=== PATIENT | female | born 1980 | race Caucasian/White ===

== ENCOUNTER 2019-09-01 14:02 | Inpatient (IN) | payer BC ==
--- NOTE | 2019-09-01 14:21 | PDOC ---
Rapid Medical Evaluation Time Seen by Provider: 09/01/19 14:16 Medical Evaluation: Allergies Allergy/AdvReac Type Severity Reaction Status Date / Time Penicillins Allergy Verified 01/23/16 02:48 09/01/19 14:17 39 year old female pmhx Complaining of weakness and ETOH withdrawals sent by PCP for low K (2.7) and low B1 and folate PE: WNL No tremors, tongue fasciculation Plan Labs EKG Pt to precede to ED for further treatment and care
--- NOTE | 2019-09-01 15:30 | PDOC ---
History of Present Illness - General Chief Complaint: Revisit, Lab Variance Stated Complaint: SENT BY PCP Time Seen by Provider: 09/01/19 14:16 History Source: Patient Exam Limitations: No Limitations Past History - Travel History Traveled outside of the country in the last 30 days: No Close contact w/someone who was outside of country & ill: No - Medical History Allergies/Adverse Reactions: Allergies Allergy/AdvReac Type Severity Reaction Status Date / Time Penicillins Allergy Verified 09/01/19 14:17 Home Medications: Ambulatory Orders Chlordiazepoxide [Librium -] 5 mg PO TID 09/01/19 Ferrous Sulfate [Iron] 325 mg PO TID 09/01/19 Folic Acid 1 mg PO DAILY 09/01/19 Thiamine HCl [Vitamin B-1] 100 mg PO DAILY 09/01/19 Anemia: Yes (IN THE PAST) Asthma: No Cardiac Disorders: No CVA: No COPD: No Diabetes: No GI Disorders: Yes (HX PANCREATITIS) Disorders: Yes (RECENT UTI CURRENTLY IN TREATMENT) HTN: No Hypercholesterolemia: No Liver Disease: No Seizures: No Thyroid Disease: Yes (ELEVATED TSH 01/05/16) - Psycho-Social/Smoking History Smoking History: Never smoked Have you smoked in the past 12 months: No Information on smoking cessation initiated: No - Substance Abuse Hx (Audit-C & DAST Scrn) How often the patient has a drink containing alcohol: Never Score: In Men: 4 or > Positive; In Women: 3 or > Positive: 0 Screen Result (Pos requires Nsg. Audit-10AR): Negative Review of Systems - Review of Systems Able to Perform ROS?: Yes Comments:: 09/01/19 17:31 CONSTITUTIONAL: Present: Generalized weakness absent: fever, chills, diaphoresis, generalized weakness, malaise, loss of appetite HEENT: Absent: rhinorrhea, nasal congestion, throat pain, throat swelling, difficulty swallowing, mouth swelling, ear pain, eye pain, visual Changes CARDIOVASCULAR: Absent: chest pain, loss of consciousness, palpitations, irregular heart rate, peripheral edema RESPIRATORY: Absent: cough, shortness of breath, dyspnea with exertion, orthopnea, wheezing, stridor, hemoptysis GASTROINTESTINAL: Absent: abdominal pain, abdominal distension, nausea, vomiting, diarrhea, constipation, melena, hematochezia GENITOURINARY: Absent: dysuria, frequency, urgency, hesitancy, hematuria, flank pain, genital pain MUSCULOSKELETAL: Absent: myalgia, arthralgia, joint swelling SKIN: Absent: rash, itching, pallor HEMATOLOGIC/IMMUNOLOGIC: Absent: easy bleeding, easy bruising, lymphadenopathy, frequent infections ENDOCRINE: Absent: unexplained weight gain, unexplained weight loss, heat intolerance, cold intolerance NEUROLOGIC: Absent: headache, focal weakness or paresthesias, dizziness, unsteady gait, seizure, mental status changes, bladder or bowel incontinence PSYCHIATRIC: Absent: anxiety, depression, suicidal or homicidal ideation, hallucinations. Is the patient limited Luxembourgish proficient: No *Physical Exam - Vital Signs Last Vital Signs Temp Pulse Resp BP Pulse Ox 97.8 F 113 H 17 106/70 99 09/01/19 14:17 09/01/19 14:17 09/01/19 14:17 09/01/19 14:17 09/01/19 14:17 - Physical Exam 09/01/19 17:31 GENERAL: Well developed, well nourished. Awake and alert. No acute distress. HEENT: Normocephalic, atraumatic. PERRLA, EOMI. No conjunctival pallor. Sclera are non- icteric. Moist mucous membranes. Oropharynx is clear. NECK: Supple. Full ROM. No JVD. Carotid pulses 2+ and symmetric, without bruits. No thyromegaly. No lymphadenopathy. CARDIOVASCULAR: Regular rate and rhythm. No murmurs, rubs, or gallops. Distal pulses are 2+ and symmetric. PULMONARY: No evidence of respiratory distress. Lungs clear to auscultation bilaterally. No wheezing, rales or rhonchi. ABDOMINAL: Soft. Non-tender. Non-distended. No rebound or guarding. No organomegaly. Normoactive bowel sounds. MUSCULOSKELETAL Normal range of motion at all joints. No bony deformities or tenderness. No CVA tenderness. EXTREMITIES: No cyanosis. No clubbing. No edema. No calf tenderness. SKIN: Warm and dry. Normal capillary refill. No rashes. No jaundice. NEUROLOGICAL: Alert, awake, appropriate. Cranial nerves 2-12 intact. No deficits to light touch and temperature in face, upper extremities and lower extremities. No motor deficits in the in face, upper extremities and lower extremities. Normoreflexic in the upper and lower extremities. Normal speech. Toes are down-going bilaterally. Gait is normal without ataxia. PSYCHIATRIC: Cooperative. Good eye contact. Appropriate mood and affect. ED Treatment Course - LABORATORY CBC & Chemistry Diagram: 09/01/19 15:30 09/01/19 15:30 Medical Decision Making - Medical Decision Making 09/01/19 17:40 Patient is a 39-year-old female past medical history of alcoholism, presents to the ER today for reported low potassium from her primary care doctor's office. She had blood work done on Thursday and her potassium was 2.7. She denies palpitations, however, reports fatigue. She states she usually drinks a bottle of wine a day however she has not drank in the last 3 days. She has been taking Librium which has been prescribed to her by Dr. Edwards however should not take it today as she needed to drive. Denies tremors, nausea, vomiting, lightheadedness and dizziness. A/P: Electrolyte derangement Exam is otherwise benign, AAO x3, Potassium repeated today is 2.7, mag is 2.2 however might be slightly hemolyzed. We will replete the potassium as well as magnesium. Sodium low at 124. EKG from Dr. Burnette office shows normal sinus rhythm at a rate at 93 bpm, normal intervals and axis, QTC 358. No acute ST-T wave changes. Given multiple metabolic derangements, will admit the patient for observation for correction. 09/01/19 17:[address] Collins. Will admit to med/surg for electrolyte abnormalities and alcohol withdrawal. Discharge - Discharge Information Problems reviewed: Yes Clinical Impression/Diagnosis: Alcohol abuse, Hypokalemia, Hyponatremia Condition: Stable - Admission Yes - Follow up/Referral - Patient Discharge Instructions - Post Discharge Activity
[2019-09-01 15:39] LABS: BASO % 0.4 % (0-2.0); EOS % 0.2 % (0-4.5); HEMATOCRIT 37.2 % (32.4-45.2); HEMOGLOBIN 11.8 GM/dL (10.7-15.3); LYMPH % 20.5 % (8-40); MCH 22.1 pg (25.7-33.7); MCHC 31.8 g/dl (32.0-36.0); MEAN CELL VOLUME 69.4 fl (80-96); MEAN PLT VOLUME 8.7 fl (7.5-11.1); MONO % 11.3 % (3.8-10.2); NEUT % 67.6 % (42.8-82.8); PLATELET COUNT 300 K/MM3 (134-434); RBC 5.37 M/mm3 (3.60-5.2); RDW 23.8 % (11.6-15.6); WHITE BLOOD COUNT 4.7 K/mm3 (4.0-10.0)
[2019-09-01 15:47] LABS: INR 0.99 (0.83-1.09); PROTHROMBIN TIME (PATIENT) 11.7 SEC (9.7-13.0)
[2019-09-01 16:12] LABS: ALBUMIN 3.8 g/dl (3.4-5.0); BILIRUBIN,TOTAL 0.8 mg/dL (0.2-1); BLOOD UREA NITROGEN 5.8 mg/dL (7-18); CALCIUM 10.3 mg/dL (8.5-10.1); CREATININE 0.9 mg/dL (0.55-1.3); TOT PROT 8.2 g/dl (6.4-8.2)
[2019-09-01 16:28] LABS: ANISOCYTOSIS 3+; MACROCYTOSIS 2+; PLATELET ESTIMATE ADEQUATE
[2019-09-01 16:45] LABS: POTASSIUM 2.7 mmol/L (3.5-5.1)
[2019-09-01] MEDS ORDERED: SODIUM CHLORIDE 1,000 ML IV STA (16:48)
[2019-09-01] MEDS ORDERED: POTASSIUM CHLORIDE TABS 20 MEQ TABLET.ER (FP) PO ONE ×2 (16:48→16:51)
[2019-09-01] MEDS ORDERED: KCL 10 MEQ IVPB 30 MEQ/300 ML INFUS.BAG IVPB ONE (16:51)
[2019-09-01] MEDS ORDERED: MAGNESIUM SULF 50% (8.12 MEQ/2 ML-1 GM VIAL) IVPB ONE (17:01)
[2019-09-01] MEDS: KCL 10 MEQ IVPB 10 MEQ/100 ML INFUS.BAG IVPB SCH ×3 (17:07→19:45)
[2019-09-01 17:13] LABS: MAGNESIUM 2.2 mg/dL (1.8-2.4)
[2019-09-01] MEDS ORDERED: MAGNESIUM 2GM/50ML STERILE WATER IVPB IVPB ONE (22:45)
[2019-09-01] MEDS ORDERED: SODIUM CHLORIDE 1,000 ML IV SCH (23:30)
[2019-09-02 00:35] VITALS: BMI 19.5
[2019-09-02] MEDS: FERROUS SO4 325 MG TABLET (FP) PO SCH ×3 (06:27→21:26)
[2019-09-02] MEDS: chlordiazePOXIDE HCL 10 MG CAPSULE PO SCH ×2 (06:27→14:13)
[2019-09-02 08:31] LABS: BASO % 0.9 % (0-2.0); EOS % 1.1 % (0-4.5); HEMATOCRIT 30.6 % (32.4-45.2); HEMOGLOBIN 9.8 GM/dL (10.7-15.3); LYMPH % 37.3 % (8-40); MCH 22.1 pg (25.7-33.7); MCHC 32.1 g/dl (32.0-36.0); MEAN CELL VOLUME 68.9 fl (80-96); MONO % 13.6 % (3.8-10.2); NEUT % 47.1 % (42.8-82.8); PLATELET COUNT 223 K/MM3 (134-434); RBC 4.43 M/mm3 (3.60-5.2); RDW 23.4 % (11.6-15.6); WHITE BLOOD COUNT 3.5 K/mm3 (4.0-10.0)
[2019-09-02 08:59] LABS: ALBUMIN 2.9 g/dl (3.4-5.0); BILIRUBIN,TOTAL 0.6 mg/dL (0.2-1); BLOOD UREA NITROGEN 4.6 mg/dL (7-18); CALCIUM 8.8 mg/dL (8.5-10.1); CREATININE 0.8 mg/dL (0.55-1.3); TOT PROT 6.2 g/dl (6.4-8.2)
[2019-09-02 09:04] LABS: POTASSIUM 2.9 mmol/L (3.5-5.1)
[2019-09-02] MEDS: KCL 10 MEQ IVPB 10 MEQ/100 ML INFUS.BAG IVPB SCH ×3 (09:28→14:23)
[2019-09-02] MEDS: FOLIC ACID 1 MG TABLET (FP) PO SCH (09:29)
[2019-09-02] MEDS: THIAMINE HCL 100 MG TABLET (FP) PO SCH (09:29)
[2019-09-02] MEDS: HEPARIN NA (PORCINE) 5,000 UNITS/ML 1ML VIAL SQ SCH ×2 (09:30→21:27)
--- NOTE | 2019-09-02 11:17 | EKG ---
Test Reason : Blood Pressure : / mmHG Vent. Rate : 091 BPM Atrial Rate : 091 BPM P-R Int : 176 ms QRS Dur : 086 ms QT Int : 368 ms P-R-T Axes : 080 036 065 degrees QTc Int : 452 ms NORMAL SINUS RHYTHM BIATRIAL ENLARGEMENT ABNORMAL ECG NO PREVIOUS ECGS AVAILABLE Confirmed by JOSESITO FROST MD ([id number]) on 09/02/2019 11:17:00 AM Referred By: Confirmed By:JOSESITO FROST MD
--- NOTE | 2019-09-02 13:17 | HP ---
Admitting History and Physical - Primary Care Physician PCP: Jennifer Collins - Admission Chief Complaint: LOW K History of Present Illness: 39-year-old female past medical history of alcoholism, presents to the ER for reported low potassium from her primary care doctor's office. She had blood work done on Thursday and her potassium was 2.7. She denies palpitations, however, reports fatigue. She states she usually drinks a bottle of wine a day however she has not drank in the last 3 days. She has been taking Librium which has been prescribed to her by Dr. Edwards however should not take it today as she needed to drive. Denies tremors, nausea, vomiting, lightheadedness and dizziness. - Past Medical History ...LMP: 01/23/16 - Smoking History Smoking history: Current some day smoker Have you smoked in the past 12 months: Yes Aproximately how many cigarettes per day: 2 - Alcohol/Substance Use Hx Alcohol Use: Yes (WINE) Home Medications - Allergies Allergies/Adverse Reactions: Allergies Allergy/AdvReac Type Severity Reaction Status Date / Time Penicillins Allergy Verified 09/01/19 14:17 - Home Medications Home Medications: Ambulatory Orders Chlordiazepoxide [Librium -] 5 mg PO TID 09/01/19 Ferrous Sulfate [Iron] 325 mg PO TID 09/01/19 Folic Acid 1 mg PO DAILY 09/01/19 Thiamine HCl [Vitamin B-1] 100 mg PO DAILY 09/01/19 Physical Examination Vital Signs: Vital Signs Temperature 98.1 F 09/02/19 06:39 Pulse Rate 92 H 09/02/19 06:39 Respiratory Rate 16 09/02/19 06:39 Blood Pressure 95/68 09/02/19 06:39 O2 Sat by Pulse Oximetry (%) 98 09/02/19 08:33 Constitutional: Yes: No Distress HENT: Yes: Atraumatic Neck: Yes: Supple Cardiovascular: Yes: Regular Rate and Rhythm Respiratory: Yes: CTA Bilaterally Gastrointestinal: Yes: Normal Bowel Sounds Extremities: Yes: WNL Neurological: Yes: Alert, Oriented Labs: CBC, BMP 09/02/19 07:05 09/02/19 07:05 Problem List - Problems (1) Alcohol abuse Assessment/Plan: ON LIBRIUM STABLE thiamine supplement Code(s): F10.10 - ALCOHOL ABUSE, UNCOMPLICATED (2) Hypokalemia Assessment/Plan: ON REPLACEMENT MONITOR Code(s): E87.6 - HYPOKALEMIA Assessment/Plan Laboratory Tests 09/01/19 09/01/19 09/01/19 15:30 15:30 15:30 WBC 4.7 RBC 5.37 H Hgb 11.8 Hct 37.2 MCV 69.4 L MCH 22.1 L MCHC 31.8 L RDW 23.8 H Plt Count 300 D MPV 8.7 Absolute Neuts (auto) 3.2 Neutrophils % 67.6 D Lymphocytes % 20.5 D Monocytes % 11.3 H D Eosinophils % 0.2 D Basophils % 0.4 Nucleated RBC % 0 Hypochromia 1+ Platelet Estimate Adequate Anisocytosis 3+ Microcytosis 1+ Macrocytosis 2+ PT with INR 11.70 INR 0.99 PTT (Actin FS) 27.0 Sodium 124 L Potassium 2.7 L* Chloride 69 L Carbon Dioxide 42 H Anion Gap 12 BUN 5.8 L Creatinine 0.9 Est GFR (CKD-EPI)AfAm 93.35 Est GFR (CKD-EPI)NonAf 80.54 Random Glucose 125 H Calcium 10.3 H Magnesium 2.2 Total Bilirubin 0.8 AST 66 H ALT 49 Alkaline Phosphatase 133 H Total Protein 8.2 Albumin 3.8 Vitamin B12 1472 H Serum Folate 19 H TSH 2.94 09/02/19 09/02/19 07:05 07:05 WBC 3.5 L RBC 4.43 Hgb 9.8 L Hct 30.6 L D MCV 68.9 L MCH 22.1 L MCHC 32.1 RDW 23.4 H Plt Count 223 D MPV 8.0 Absolute Neuts (auto) 1.7 Neutrophils % 47.1 D Lymphocytes % 37.3 D Monocytes % 13.6 H Eosinophils % 1.1 D Basophils % 0.9 Nucleated RBC % 0 Hypochromia Platelet Estimate Anisocytosis Microcytosis Macrocytosis PT with INR INR PTT (Actin FS) Sodium 129 L Potassium 2.9 L* Chloride 82 L Carbon Dioxide 38 H Anion Gap 9 BUN 4.6 L Creatinine 0.8 Est GFR (CKD-EPI)AfAm 107.64 Est GFR (CKD-EPI)NonAf 92.87 Random Glucose 94 Calcium 8.8 Magnesium Total Bilirubin 0.6 AST 56 H ALT 37 Alkaline Phosphatase 97 Total Protein 6.2 L Albumin 2.9 L Vitamin B12 Serum Folate TSH Active Medications Generic Name Dose Route Start Last Admin Trade Name Santo PRN Reason Stop Dose Admin Chlordiazepoxide HCl 10 mg 09/02/19 06:00 09/02/19 06:27 Librium - PO 10 mg TID YESENIA Administration Ferrous Sulfate 325 mg 09/02/19 06:00 09/02/19 06:27 Feosol - PO 325 mg TID YESENIA Administration Folic Acid 1 mg 09/02/19 10:00 09/02/19 09:29 Folic Acid - PO 1 mg DAILY YESENIA Administration Heparin Sodium (Porcine) 5,000 unit 09/02/19 10:00 09/02/19 09:30 Heparin - SQ 5,000 unit BID YESENIA Administration Sodium Chloride 1,000 mls @ 50 mls/hr 09/01/19 23:30 09/02/19 00:00 Normal Saline - IV 09/02/19 23:16 50 mls/hr ASDIR YESENIA Administration Thiamine HCl 100 mg 09/02/19 10:00 09/02/19 09:29 Vitamin B1 - PO 100 mg DAILY YESENIA Administration covering for dr collins today
[2019-09-02] MEDS ORDERED: KCL 10 MEQ IVPB 10 MEQ/100 ML INFUS.BAG IVPB SCH (13:30)
[2019-09-02] MEDS ORDERED: POTASSIUM CHLORIDE TABS 20 MEQ TABLET.ER (FP) PO ONE (13:45)
--- NOTE | 2019-09-02 15:31 | CONSULT ---
Consult Consult Specialty:: Nephrology Reason for Consultation:: hypokalemia - History of Present Illness Chief Complaint: sent in for hypokalemia History of Present Illness: Pt is a 39 year old female with history of etoh abuse who was sent in for hypokalemia. She was also found to be hyponatremic. She drinks a bottle of wine per day. She denies chest pain or palpitations. She complains of fatigue. She wants to stop drinking. She denies other drug use aside from canibis. She denies nausea or vomiting. SHe denies diarrhea. She denies headache or change in vision. - History Source History Provided By: Patient - Past Medical History ...LMP: 01/23/16 - Alcohol/Substance Use Hx Alcohol Use: Yes (WINE) - Smoking History Smoking history: Current some day smoker Have you smoked in the past 12 months: Yes Aproximately how many cigarettes per day: 2 Home Medications - Allergies Allergies/Adverse Reactions: Allergies Allergy/AdvReac Type Severity Reaction Status Date / Time Penicillins Allergy Verified 09/01/19 14:17 - Home Medications Home Medications: Ambulatory Orders Chlordiazepoxide [Librium -] 5 mg PO TID 09/01/19 Ferrous Sulfate [Iron] 325 mg PO TID 09/01/19 RX: Folic Acid 1 mg PO DAILY 09/01/19 Thiamine HCl [Vitamin B-1] 100 mg PO DAILY 09/01/19 Family Medical History Family History: Denies Review of Systems - Review of Systems Constitutional: reports: Malaise, Weakness Eyes: reports: No Symptoms HENT: reports: No Symptoms Neck: reports: No Symptoms Cardiovascular: reports: No Symptoms Respiratory: reports: No Symptoms Gastrointestinal: reports: No Symptoms Genitourinary: reports: No Symptoms Musculoskeletal: reports: No Symptoms Integumentary: reports: No Symptoms Neurological: reports: No Symptoms Endocrine: reports: No Symptoms Hematology/Lymphatic: reports: No Symptoms Psychiatric: reports: No Symptoms Physical Exam Vital Signs: Vital Signs Temperature 98.1 F 09/02/19 06:39 Pulse Rate 88 09/02/19 12:00 Respiratory Rate 18 09/02/19 12:00 Blood Pressure 96/62 09/02/19 12:00 O2 Sat by Pulse Oximetry (%) 98 09/02/19 08:33 Constitutional: Yes: Calm Eyes: Yes: Conjunctiva Clear HENT: Yes: Atraumatic Neck: Yes: Supple Cardiovascular: Yes: S1, S2 Respiratory: Yes: CTA Bilaterally Gastrointestinal: Yes: Soft Renal/: Yes: WNL Musculoskeletal: Yes: WNL Edema: No Integumentary: Yes: WNL Neurological: Yes: Oriented Psychiatric: Yes: Oriented Labs: CBC, BMP 09/02/19 07:05 09/02/19 07:05 Laboratory Tests 09/01/19 09/01/19 09/02/19 15:30 20:09 07:05 Sodium 124 L 129 L Potassium 2.7 L* 2.9 L* Carbon Dioxide 42 H 38 H Calcium 10.3 H 8.8 COVID-19 ([facility]) Not detected Imaging - Results Chest X-ray: Report Reviewed Problem List - Problems (1) Alcohol abuse Code(s): F10.10 - ALCOHOL ABUSE, UNCOMPLICATED (2) Hypokalemia Code(s): E87.6 - HYPOKALEMIA (3) Hyponatremia Code(s): E87.1 - HYPO-OSMOLALITY AND HYPONATREMIA (4) Dehydration Code(s): E86.0 - DEHYDRATION Assessment/Plan Current Medications Generic Name Dose Route Start Last Admin Trade Name Freq PRN Reason Stop Dose Admin Chlordiazepoxide HCl 10 mg 09/02/19 06:00 09/02/19 14:13 Librium - PO 10 mg TID YESENIA Administration Ferrous Sulfate 325 mg 09/02/19 06:00 09/02/19 14:12 Feosol - PO 325 mg TID YESENIA Administration Folic Acid 1 mg 09/02/19 10:00 09/02/19 09:29 Folic Acid - PO 1 mg DAILY YESENIA Administration Heparin Sodium (Porcine) 5,000 unit 09/02/19 10:00 09/02/19 09:30 Heparin - SQ 5,000 unit BID YESENIA Administration Potassium Chloride 10 meq in 100 mls @ 100 mls/hr 09/02/19 13:30 Potassium Chloride 10 Meq Premix Ivpb - IVPB 09/02/19 16:29 Q60M YESENIA Thiamine HCl 100 mg 09/02/19 10:00 09/02/19 09:29 Vitamin B1 - PO 100 mg DAILY YESENIA Administration Impression 1. etoh abuse 2. hypokalemia 3. hyponatremia 4. hypercalcemia 5. dehydration 6. alkalosis Plan - replace potassium - check mag - check phos - calcium improved - restart saline with potassium - repeat labs - discussed with nurse - discussed etoh intake
[2019-09-02] MEDS: POTASSIUM CHLORIDE 40 MEQ in SODIUM CHLORIDE 1,000 ML IVPB SCH (16:03)
--- NOTE | 2019-09-02 16:24 | CONSULT ---
Consult Detox [facility] Reason for Current Admission/Consult: We are called to consult on Ms. Gallego with a history of alcohol use disorder. Referred by:: Dr. Jennifer Collins - History History of Present Illness: 39-year-old female past medical history of alcoholism, presented to the ER for reported low potassium from her primary care doctor's office. She had blood work done on Thursday and her potassium was 2.7. She denies palpitations, however, reports fatigue. Substance use history She states she usually drinks a bottle of wine a day however she has not drank in the last 3 days. She has been taking Librium which has been prescribed to her by Dr. Edwards however should not take it today as she needed to drive. Denies tremors, nausea, vomiting, lightheadedness and dizziness. Laboratory Results - last 24 hr 09/01/19 09/01/19 09/02/19 15:30 20:09 07:05 WBC 3.5 L RBC 4.43 Hgb 9.8 L Hct 30.6 L D MCV 68.9 L MCH 22.1 L MCHC 32.1 RDW 23.4 H Plt Count 223 D MPV 8.0 Absolute Neuts (auto) 1.7 Neutrophils % 47.1 D Lymphocytes % 37.3 D Monocytes % 13.6 H Eosinophils % 1.1 D Basophils % 0.9 Nucleated RBC % 0 Sodium 124 L Potassium 2.7 L* Chloride 69 L Carbon Dioxide 42 H Anion Gap 12 BUN 5.8 L Creatinine 0.9 Est GFR (CKD-EPI)AfAm 93.35 Est GFR (CKD-EPI)NonAf 80.54 Random Glucose 125 H Calcium 10.3 H Magnesium 2.2 Total Bilirubin 0.8 AST 66 H ALT 49 Alkaline Phosphatase 133 H Total Protein 8.2 Albumin 3.8 Vitamin B12 1472 H Serum Folate 19 H TSH 2.94 COVID-19 ([facility]ILO) Not detected 09/02/19 07:05 WBC RBC Hgb Hct MCV MCH MCHC RDW Plt Count MPV Absolute Neuts (auto) Neutrophils % Lymphocytes % Monocytes % Eosinophils % Basophils % Nucleated RBC % Sodium 129 L Potassium 2.9 L* Chloride 82 L Carbon Dioxide 38 H Anion Gap 9 BUN 4.6 L Creatinine 0.8 Est GFR (CKD-EPI)AfAm 107.64 Est GFR (CKD-EPI)NonAf 92.87 Random Glucose 94 Calcium 8.8 Magnesium Total Bilirubin 0.6 AST 56 H ALT 37 Alkaline Phosphatase 97 Total Protein 6.2 L Albumin 2.9 L Vitamin B12 Serum Folate TSH COVID-19 ([facility]O) Home Medication List Medication Instructions Recorded Confirmed Type Chlordiazepoxide [Librium -] 5 mg PO TID 09/01/19 09/01/19 History Ferrous Sulfate [Iron] 325 mg PO TID 09/01/19 09/01/19 History Folic Acid 1 mg PO DAILY 09/01/19 09/01/19 History Thiamine HCl [Vitamin B-1] 100 mg PO DAILY 09/01/19 09/01/19 History Active Medications Generic Name Dose Route Start Last Admin Trade Name Freq PRN Reason Stop Dose Admin Chlordiazepoxide HCl 10 mg 09/02/19 06:00 09/02/19 14:13 Librium - PO 10 mg TID YESENIA Administration Ferrous Sulfate 325 mg 09/02/19 06:00 09/02/19 14:12 Feosol - PO 325 mg TID YESENIA Administration Folic Acid 1 mg 09/02/19 10:00 09/02/19 09:29 Folic Acid - PO 1 mg DAILY YESENIA Administration Heparin Sodium (Porcine) 5,000 unit 09/02/19 10:00 09/02/19 09:30 Heparin - SQ 5,000 unit BID YESENIA Administration Potassium Chloride 40 meq/ 1,020 mls @ 55 mls/hr 09/02/19 15:45 09/02/19 16:03 Sodium Chloride IVPB 55 mls/hr Q18H YESENIA Administration Thiamine HCl 100 mg 09/02/19 10:00 09/02/19 09:29 Vitamin B1 - PO 100 mg DAILY YESENIA Administration Vital Signs Temperature 98.1 F 09/02/19 06:39 Pulse Rate 88 09/02/19 12:00 Respiratory Rate 18 09/02/19 12:00 Blood Pressure 96/62 09/02/19 12:00 O2 Sat by Pulse Oximetry (%) 98 09/02/19 08:33 - History Source History Provided By: Medical Record - Alcohol/Substance Use Hx Alcohol Use: Yes (WINE,per record: one liter per day) - Past Medical History ...LMP: 01/23/16 Assessment Plan - Diagnosis (1) Alcohol use disorder, mild, abuse Status: Acute (2) Hypokalemia Status: Acute - Plan Plan: Mr. Gallego presented to [facility] yesterday, had been abstinent for 3 days prior to admission. Review of notes do not demonstrate the patient to be in significant withdrawal. Imp 1. Alcohol use disorder, review of notes does not reveal significant withdrawal, today would be day 4 without alcohol ingestion 2. Hypokalemia, under evaluation by medical team Plan 1. Continue to monitor for alcohol withdrawal symptoms, CIWA scale 2. Reduce Librium to 10 mg bid x 2 doses, then reduce to 10 mg once, then d/c - Medication Detox Regimen/Protocol: Librium
[2019-09-02 16:52] LABS: ALBUMIN 2.8 g/dl (3.4-5.0); BILIRUBIN,TOTAL 0.5 mg/dL (0.2-1); BLOOD UREA NITROGEN 4.4 mg/dL (7-18); CALCIUM 8.4 mg/dL (8.5-10.1); CREATININE 0.8 mg/dL (0.55-1.3); MAGNESIUM 2.2 mg/dL (1.8-2.4); PHOSPHOROUS 1.3 mg/dL (2.5-4.9); POTASSIUM 3.1 mmol/L (3.5-5.1); TOT PROT 5.8 g/dl (6.4-8.2)
[2019-09-02] MEDS ORDERED: POTASSIUM CHLORIDE ORAL LIQUID 20 MEQ/15 ML PO ONE (17:39)
[2019-09-02] MEDS: chlordiazePOXIDE 5 MG CAPSULE PO SCH (21:25)
[2019-09-02] MEDS: NAPH,MB-DB/K PH,MBDB POWDER PACKET PO SCH (21:26)
[2019-09-03] MEDS: NAPH,MB-DB/K PH,MBDB POWDER PACKET PO SCH ×3 (06:15→22:02)
[2019-09-03] MEDS: FERROUS SO4 325 MG TABLET (FP) PO SCH ×3 (06:15→22:02)
[2019-09-03 08:06] LABS: ALBUMIN 2.6 g/dl (3.4-5.0); BILIRUBIN,TOTAL 0.4 mg/dL (0.2-1); BLOOD UREA NITROGEN 3.6 mg/dL (7-18); CALCIUM 8.4 mg/dL (8.5-10.1); CREATININE 0.7 mg/dL (0.55-1.3); MAGNESIUM 2.1 mg/dL (1.8-2.4); PHOSPHOROUS 1.6 mg/dL (2.5-4.9); POTASSIUM 3.9 mmol/L (3.5-5.1); TOT PROT 5.6 g/dl (6.4-8.2)
[2019-09-03] MEDS: FOLIC ACID 1 MG TABLET (FP) PO SCH (09:33)
[2019-09-03] MEDS: POTASSIUM CHLORIDE 40 MEQ in SODIUM CHLORIDE 1,000 ML IVPB SCH (09:33)
[2019-09-03] MEDS: chlordiazePOXIDE 5 MG CAPSULE PO SCH ×2 (09:33→22:02)
[2019-09-03] MEDS: HEPARIN NA (PORCINE) 5,000 UNITS/ML 1ML VIAL SQ SCH ×2 (09:34→22:02)
[2019-09-03] MEDS: THIAMINE HCL 100 MG TABLET (FP) PO SCH (09:35)
[2019-09-03] MEDS ORDERED: POTASSIUM CHLORIDE 40 MEQ in SODIUM CHLORIDE 1,000 ML IVPB SCH (14:18)
--- NOTE | 2019-09-03 14:18 | PN ---
Progress Note, Physician History of Present Illness: Pt seen and examined at bedside. She is awake and alert. She described raynauds in her fingers. - Current Medication List Current Medications: Active Medications Chlordiazepoxide HCl (Librium -) 5 mg PO BID [facility] Stop: 09/03/19 22:01 Last Admin: 09/03/19 09:33 Dose: 5 mg Documented by: Ferrous Sulfate (Feosol -) 325 mg PO TID [facility] Last Admin: 09/03/19 06:15 Dose: 325 mg Documented by: Folic Acid (Folic Acid -) 1 mg PO DAILY [facility] Last Admin: 09/03/19 09:33 Dose: 1 mg Documented by: Heparin Sodium (Porcine) (Heparin -) 5,000 unit SQ BID [facility] Last Admin: 09/03/19 09:34 Dose: 5,000 unit Documented by: Potassium Chloride 40 meq/ (Sodium Chloride) 1,020 mls @ 55 mls/hr IVPB Q18H [facility] Last Admin: 09/03/19 09:33 Dose: 55 mls/hr Documented by: Potassium Phos/Sodium Phos (Phos-Nak Packet -) 1 packet PO TID [facility] Last Admin: 09/03/19 06:15 Dose: 1 packet Documented by: Thiamine HCl (Vitamin B1 -) 100 mg PO DAILY [facility] Last Admin: 09/03/19 09:35 Dose: 100 mg Documented by: - Objective Vital Signs: Vital Signs Temperature 98.7 F 09/03/19 06:00 Pulse Rate 96 H 09/03/19 10:00 Respiratory Rate 18 09/03/19 10:00 Blood Pressure 104/56 L 09/03/19 10:00 O2 Sat by Pulse Oximetry (%) 99 09/03/19 10:00 Constitutional: Yes: Calm Eyes: Yes: Conjunctiva Clear HENT: Yes: Atraumatic Neck: Yes: Supple Cardiovascular: Yes: S1, S2 Respiratory: Yes: CTA Bilaterally Gastrointestinal: Yes: Soft Genitourinary: Yes: WNL Extremities: Yes: WNL Edema: No Neurological: Yes: Oriented Psychiatric: Yes: Oriented Labs: CBC, BMP 09/02/19 07:05 09/03/19 06:28 INR, PTT INR 0.99 (0.83-1.09) 09/01/19 15:30 Problem List - Problems (1) Alcohol abuse Code(s): F10.10 - ALCOHOL ABUSE, UNCOMPLICATED (2) Hypokalemia Code(s): E87.6 - HYPOKALEMIA (3) Hyponatremia Code(s): E87.1 - HYPO-OSMOLALITY AND HYPONATREMIA (4) Dehydration Code(s): E86.0 - DEHYDRATION Assessment/Plan Current Medications Generic Name Dose Route Start Last Admin Trade Name Santo PRN Reason Stop Dose Admin Chlordiazepoxide HCl 5 mg 09/02/19 22:00 09/03/19 09:33 Librium - PO 09/03/19 22:01 5 mg BID YESENIA Administration Ferrous Sulfate 325 mg 09/02/19 06:00 09/03/19 06:15 Feosol - PO 325 mg TID YESENIA Administration Folic Acid 1 mg 09/02/19 10:00 09/03/19 09:33 Folic Acid - PO 1 mg DAILY YESENIA Administration Heparin Sodium (Porcine) 5,000 unit 09/02/19 10:00 09/03/19 09:34 Heparin - SQ 5,000 unit BID YESENIA Administration Potassium Chloride 40 meq/ 1,020 mls @ 55 mls/hr 09/02/19 15:45 09/03/19 09:33 Sodium Chloride IVPB 55 mls/hr Q18H YESENIA Administration Potassium Phos/Sodium Phos 1 packet 09/02/19 22:00 09/03/19 06:15 Phos-Nak Packet - PO 1 packet TID YESENIA Administration Thiamine HCl 100 mg 09/02/19 10:00 09/03/19 09:35 Vitamin B1 - PO 100 mg DAILY YESENIA Administration Impression 1. etoh abuse 2. hypokalemia 3. hyponatremia 4. hypercalcemia 5. dehydration 6. alkalosis Plan - cont detox - sodium improved - potassium improved - cont phos supplements - encourage po intake
--- NOTE | 2019-09-03 22:48 | PN ---
Progress Note, Physician History of Present Illness: No new complaints - Current Medication List Current Medications: Active Medications Ferrous Sulfate (Feosol -) 325 mg PO TID [facility] Last Admin: 09/03/19 22:02 Dose: 325 mg Documented by: Folic Acid (Folic Acid -) 1 mg PO DAILY [facility] Last Admin: 09/03/19 09:33 Dose: 1 mg Documented by: Heparin Sodium (Porcine) (Heparin -) 5,000 unit SQ BID [facility] Last Admin: 09/03/19 22:02 Dose: 5,000 unit Documented by: Potassium Chloride 40 meq/ (Sodium Chloride) 1,020 mls @ 40 mls/hr IVPB Q24H [facility] Last Admin: 09/03/19 14:50 Dose: Not Given Documented by: Potassium Phos/Sodium Phos (Phos-Nak Packet -) 1 packet PO TID [facility] Last Admin: 09/03/19 22:02 Dose: 1 packet Documented by: Thiamine HCl (Vitamin B1 -) 100 mg PO DAILY [facility] Last Admin: 09/03/19 09:35 Dose: 100 mg Documented by: - Objective Vital Signs: Vital Signs Temperature 98.7 F 09/03/19 18:00 Pulse Rate 99 H 09/03/19 18:00 Respiratory Rate 18 09/03/19 18:00 Blood Pressure 136/68 09/03/19 18:00 O2 Sat by Pulse Oximetry (%) 100 09/03/19 18:00 Neck: Yes: WNL, Supple Cardiovascular: Yes: WNL, Regular Rate and Rhythm Respiratory: Yes: WNL, Regular, CTA Bilaterally Gastrointestinal: Yes: WNL, Normal Bowel Sounds, Soft Labs: CBC, BMP 09/02/19 07:05 09/03/19 06:28 INR, PTT INR 0.99 (0.83-1.09) 09/01/19 15:30 Problem List - Problems (1) Alcohol dependence with uncomplicated withdrawal Assessment/Plan: Cont librium taper Cont thiamine/folic acid Code(s): F10.230 - ALCOHOL DEPENDENCE WITH WITHDRAWAL, UNCOMPLICATED (2) Hypokalemia Assessment/Plan: K+ replaced Cont to monitor Code(s): E87.6 - HYPOKALEMIA (3) Hyponatremia Code(s): E87.1 - HYPO-OSMOLALITY AND HYPONATREMIA (4) History of anemia Assessment/Plan: Cont FeS04 Code(s): Z86.2 - PRSNL HISTORY OF DIS OF THE BLD/BLD-FORM ORG/IMMUN MECHNSM
[2019-09-04] MEDS: FERROUS SO4 325 MG TABLET (FP) PO SCH ×2 (06:11→14:23)
[2019-09-04] MEDS: NAPH,MB-DB/K PH,MBDB POWDER PACKET PO SCH (06:11)
[2019-09-04 08:04] LABS: ALBUMIN 2.7 g/dl (3.4-5.0); BILIRUBIN,TOTAL 0.5 mg/dL (0.2-1); BLOOD UREA NITROGEN 6.5 mg/dL (7-18); CALCIUM 8.4 mg/dL (8.5-10.1); CREATININE 0.8 mg/dL (0.55-1.3); MAGNESIUM 1.9 mg/dL (1.8-2.4); PHOSPHOROUS 3.2 mg/dL (2.5-4.9); POTASSIUM 4.5 mmol/L (3.5-5.1); TOT PROT 5.8 g/dl (6.4-8.2)
[2019-09-04] MEDS: HEPARIN NA (PORCINE) 5,000 UNITS/ML 1ML VIAL SQ SCH (09:31)
[2019-09-04] MEDS: THIAMINE HCL 100 MG TABLET (FP) PO SCH (09:31)
[2019-09-04] MEDS: FOLIC ACID 1 MG TABLET (FP) PO SCH (09:32)
[2019-09-04] MEDS ORDERED: BACITRACIN 15 GM TUBE TOPICAL OINTMENT TP SCH (13:00)
--- NOTE | 2019-09-04 14:55 | PN ---
Progress Note, Physician History of Present Illness: Pt seen and examined at bedside. She is awake and alert. She says she feels much better. - Current Medication List Current Medications: Active Medications Bacitracin (Bacitracin -) 1 applic TP BID [facility] Last Admin: 09/04/19 14:22 Dose: 1 applic Documented by: Ferrous Sulfate (Feosol -) 325 mg PO TID [facility] Last Admin: 09/04/19 14:23 Dose: 325 mg Documented by: Folic Acid (Folic Acid -) 1 mg PO DAILY [facility] Last Admin: 09/04/19 09:32 Dose: 1 mg Documented by: Heparin Sodium (Porcine) (Heparin -) 5,000 unit SQ BID [facility] Last Admin: 09/04/19 09:31 Dose: 5,000 unit Documented by: Thiamine HCl (Vitamin B1 -) 100 mg PO DAILY [facility] Last Admin: 09/04/19 09:31 Dose: 100 mg Documented by: - Objective Vital Signs: Vital Signs Temperature 98.4 F 09/04/19 09:24 Pulse Rate 102 H 09/04/19 09:24 Respiratory Rate 18 09/04/19 09:24 Blood Pressure 95/70 09/04/19 09:24 O2 Sat by Pulse Oximetry (%) 99 09/04/19 10:00 Constitutional: Yes: Calm Eyes: Yes: Conjunctiva Clear HENT: Yes: Atraumatic Neck: Yes: Supple Cardiovascular: Yes: S1, S2 Respiratory: Yes: CTA Bilaterally Gastrointestinal: Yes: Soft Genitourinary: Yes: WNL Musculoskeletal: Yes: WNL Edema: No Neurological: Yes: Oriented Psychiatric: Yes: Oriented Labs: CBC, BMP 09/02/19 07:05 09/04/19 06:42 INR, PTT INR 0.99 (0.83-1.09) 09/01/19 15:30 Problem List - Problems (1) Alcohol abuse Code(s): F10.10 - ALCOHOL ABUSE, UNCOMPLICATED (2) Hypokalemia Code(s): E87.6 - HYPOKALEMIA (3) Hyponatremia Code(s): E87.1 - HYPO-OSMOLALITY AND HYPONATREMIA (4) Dehydration Code(s): E86.0 - DEHYDRATION Assessment/Plan Current Medications Generic Name Dose Route Start Last Admin Trade Name Sidq PRN Reason Stop Dose Admin Bacitracin 1 applic 09/04/19 13:00 09/04/19 14:22 Bacitracin - TP 1 applic BID YESENIA Administration Ferrous Sulfate 325 mg 09/02/19 06:00 09/04/19 14:23 Feosol - PO 325 mg TID YESENIA Administration Folic Acid 1 mg 09/02/19 10:00 09/04/19 09:32 Folic Acid - PO 1 mg DAILY YESENIA Administration Heparin Sodium (Porcine) 5,000 unit 09/02/19 10:00 09/04/19 09:31 Heparin - SQ 5,000 unit BID YESENIA Administration Thiamine HCl 100 mg 09/02/19 10:00 09/04/19 09:31 Vitamin B1 - PO 100 mg DAILY YESENIA Administration Impression 1. etoh abuse 2. hypokalemia 3. hyponatremia 4. hypercalcemia 5. dehydration 6. alkalosis Plan - will stop fluids - pt tolerating diet - lytes improved - encourage po intake
[2019-09-04 15:24] VITALS: BP 94/63; PULSE 83; TEMP 98.2
== END 2019-09-04 16:00 | disposition home or self-care (01) | DRG 641 ==
LOC: JER 14:02 → JERBED 19:07 → J5S 21:31
PROVIDERS: ADMIT Internal Medicine; ATTEND Internal Medicine
DX: E87.6 Hypokalemia (principal); E87.1 Hypo-osmolality and hyponatremia; E87.3 Alkalosis; E86.0 Dehydration; E83.52 Hypercalcemia; F10.10 Alcohol abuse, uncomplicated
CPT/HCPCS: 36415; 71046-TC-FY; 80053; 82607; 82746; 83735; 84100; 84425; 84443; 85025; 85610; 85730; 93005; 93010; 99285-25; J1644; U0003